=== PATIENT | male | born 1965 | race Hispanic/Latino ===

== ENCOUNTER 2019-07-02 | Emergency (ER) | payer SELFPAY ==
[~2019-07-02] MED LIST: AMOXICILLIN500 MG PO
[2019-07-02] MEDS ORDERED: NITROGLYCERIN0.4 MG SL (20:34)
[2019-07-02] MEDS ORDERED: LISINOPRIL20 M1 PO (20:34)
== END 2019-07-02 20:39 | disposition home or self-care (01) | DRG 605 ==
PROC: 0HQEXZZ Repair Left Lower Arm Skin, External Approach (ICD-10-PCS; principal; 2019-07-02)
DX: S51.812A Laceration without foreign body of left forearm, initial encounter (principal); W26.0XXA Contact with knife, initial encounter; Y93.H2 Activity, gardening and landscaping; Y92.007 Garden or yard of unspecified non-institutional (private) residence as the place of occurrence of the external cause

== ENCOUNTER 2019-07-04 | Emergency (ER) | payer SELFPAY ==
[~2019-07-04] MED LIST changes: +LISINOPRIL20 M1 PO; +NITROGLYCERIN0.4 MG SL
[2019-07-04] MEDS ORDERED: KEFLEX500 MG PO (23:58)
== END 2019-07-05 00:20 | disposition home or self-care (01) | DRG 921 ==
DX: T81.33XA Disruption of traumatic injury wound repair, initial encounter (principal); L08.9 Local infection of the skin and subcutaneous tissue, unspecified; Y83.8 Other surgical procedures as the cause of abnormal reaction of the patient, or of later complication, without mention of misadventure at the time of the procedure